=== PATIENT | male | born 1985 | race Caucasian/White ===

== ENCOUNTER 2017-04-28 19:33 | Emergency (ER) | payer OTHER ==
[~2017-04-28] VITALS: Ht 180.3 cm; Wt 92.5 kg
[2017-04-28 19:35] VITALS: BP 140/76
== END 2017-04-28 21:53 | disposition home or self-care (01) ==
LOC: ED 19:33
DX: R07.89 Other chest pain (principal); J45.909 Unspecified asthma, uncomplicated